=== PATIENT | female | born 1950 | race Caucasian/White ===

== ENCOUNTER 2021-06-20 16:50 | Outpatient (CLI) | payer MEDICARE, OTHER | END 2021-06-20 16:51 | disposition home or self-care (01) | LOC: CSHRAD 16:50 | PROVIDERS: ATTEND Nurse Practitioner Adult Health | DX: R05.9 Cough, unspecified (principal); J45.41 Moderate persistent asthma with (acute) exacerbation | CPT/HCPCS: 71046 ==

== ENCOUNTER 2021-11-13 14:49 | Outpatient (CLI) | payer MEDICARE | END 2021-11-13 14:50 | disposition home or self-care (01) | LOC: CSHRAD 14:49 | PROVIDERS: ATTEND Nurse Practitioner Adult Health | DX: J45.41 Moderate persistent asthma with (acute) exacerbation (principal) | CPT/HCPCS: 71046 ==

== ENCOUNTER 2022-07-03 08:12 | Outpatient (CLI) | payer MEDICARE | END 2022-07-03 08:13 | disposition home or self-care (01) | LOC: CSHMAMMO 08:12 | PROVIDERS: ATTEND Nurse Practitioner Adult Health | DX: Z12.31 Encounter for screening mammogram for malignant neoplasm of breast (principal); Z91.89 Other specified personal risk factors, not elsewhere classified | CPT/HCPCS: 77063; 77067 ==

== ENCOUNTER 2024-02-16 14:17 | Outpatient (CLI) | payer MEDICARE | END 2024-02-16 14:18 | disposition home or self-care (01) | LOC: CSHMAMMO 14:17 | PROVIDERS: ATTEND Family Medicine | DX: Z12.31 Encounter for screening mammogram for malignant neoplasm of breast (principal); Z91.89 Other specified personal risk factors, not elsewhere classified | CPT/HCPCS: 77063; 77067 ==